=== PATIENT | male | born 1940 | race Caucasian/White ===

== ENCOUNTER → 2018-01-28 08:21 | Outpatient (CLI) | payer MEDICARE ==
--- NOTE | ~2018-01-28 | EC ---
PATIENT:PARESH LEONARD DATE OF SERVICE: 01/28/18 SEX: M MEDICAL RECORD: [id number] DATE OF : 40 LOCATION:[facility] AGE OF PATIENT: 77 ADMISSION DATE: 01/28/18 REFERRING PHYSICIAN: INTERPRETING PHYSICIAN: ORAL MONCADA MD ECHOCARDIOGRAM REPORT ECHO CHARGES 4 ECHO COMPLETE Date: 01/28/18 CLINICAL DIAGNOSIS: EDEMA/HTN/SOB ECHOCARDIOGRAPHIC MEASUREMENTS (adult normal given) AC root (d.<3.7cm) 3.4 cm LV Septum d (<1.2 cm> 1.3 cm Valve Excursion 2.1 cm LV Septum (systole) 1.6 cm Left Atria (s.<4.0cm> 3.8 cm LVPW d(<1.2cm) 1.4 cm RV (d.<2.3cm) 2.8 cm LVPW (sytole) 1.7 cm LV diastole(<5.6CM) 3.9 cm MV E-F(>70mm/sec) cm LV systole 1.6 cm LVOT Diameter 2.0 cm MV exc.(>10mm) cm Est.ejection fraction (50-75%) % DOPPLER: LVIT cm/sec A 57.0 cm/sec E 80.0 cm/sec LA cm/sec RVSP 41.3 mmHg LVOT 128 cm/sec AOP1/2T m/s Asc. Ao 181 cm/sec RVOT 61.0 cm/sec RA cm/sec PA 92.0 cm/sec AV Gradient Peak 13.1 mmHg AV Mean 6.7 mmHg AV Area 2.4 cm MV Gradient Peak 5.8 mmHg MV Mean 1.8 mmHg MV Area cm COMMENTS: Operations Research Manager: 1 TASIA CALHOUNOE Roof Truss Builder: 1 Dr. Moncada TAPE# PACS Pericardial Effusion N DATE OF SERVICE: FINDINGS: 1. Left ventricular chamber size is within normal limits. Left ventricular systolic function is normal. Overall ejection fraction estimated at 55%. 2. Left atrium is within normal limits at 3.8 cm. Right atrium and right ventricle chamber sizes are moderately dilated. 3. Valvular structures have normal structure and motion. 4. Doppler interrogation reveals only trace mitral regurgitation, mild tricuspid regurgitation, no other valvular insufficiency or stenosis. Pulmonary ECHOCARDIOGRAM REPORT [id number] PARESH LEONARD systolic pressure is estimated 41 mmHg. 5. No evidence of pericardial effusion or left ventricular thrombus. TRANSINT:[id number] Voice Confirmation ID: [id number] DOCUMENT ID: [id number] ORAL MONCADA MD at 0924 CC: [id number] DICTATION DATE: 01/28/18 1138 PRODUCTION CREW SUPERVISOR: 01/28/18 1157 DEP CLI 01/28/18 [id number] [place] [address]
[~2018-01-28 08:21] MED LIST: ADVAIR DISKU AER 250; ALBUTEROL SULF8.5 GM; FENOFIBRATE160 MG PO; KEFLEX500 MG PO; LISINOP/HCTZ TAB 20-; MEGACE ES625 MG/5 M PO; MUPIROCIN22 GM; TENORMIN25 MG PO; TENORMIN50 MG; ZOLOFT25 MG
[2018-02-20 12:36] VITALS: BMI 25.6
== END | disposition home or self-care (01) ==
LOC: D.ECHO 08:21
DX: R60.9 Edema, unspecified (principal); I10 Essential (primary) hypertension; R06.02 Shortness of breath

== ENCOUNTER 2018-01-28 09:00 | Inpatient (IN) | payer MEDICARE ==
[~2018-01-28] VITALS: Ht 157.5 cm; Wt 63.5 kg
[2018-02-19] MEDS ORDERED: LISINOP/HCTZ TAB 20- (09:55)
[2018-02-19] MEDS ORDERED: MUPIROCIN22 GM (09:56)
[2018-02-19] MEDS ORDERED: KEFLEX500 MG PO (09:56)
[2018-02-19] MEDS ORDERED: ZOLOFT25 MG (09:58)
[2018-02-19] MEDS ORDERED: TENORMIN25 MG PO (09:59)
[2018-02-19] MEDS ORDERED: ALBUTEROL SULF8.5 GM (10:00)
[2018-02-19] MEDS ORDERED: TENORMIN50 MG (10:00)
[2018-02-19] MEDS ORDERED: FENOFIBRATE160 MG PO (10:01)
[2018-02-19] MEDS ORDERED: ADVAIR DISKU AER 250 (10:01)
[2018-02-19] MEDS ORDERED: MEGACE ES625 MG/5 M PO (10:03)
[2018-02-19 10:20] LABS: BASOPHILS 0.4 % (0-2); EOSINOPHILS 0.9 % (0-7); HEMATOCRIT 29.1 % (42.0-54.0); HEMOGLOBIN 10.2 g/dL (13.5-17.5); IMMATURE GRANULOCYTES 0.5 % (0-5); LYMPHOCYTES 8.5 % (15-50); MCH 31.8 pg (26.0-34.0); MCHC 35.1 g/dL (31.0-37.0); MCV 90.7 fL (80.0-100.0); MEAN PLATELET VOLUME 9.7 fL (7.4-10.4); MONOCYTES 5.4 % (2-11); NEUTROPHILS 84.3 % (40-80); PLATELET COUNT 502 10x3/uL (130-400); RBC 3.21 10x6/uL (4.20-6.10); RDW 15.8 % (11.5-14.5); WBC 13.9 10x3/uL (4.8-10.8)
[2018-02-19 10:38] LABS: ALBUMIN 3.7 g/dL (3.4-5.0); ANION GAP 19.1 mmol/L (8-16); BILIRUBIN - TOTAL 0.36 mg/dL (0.2-1.3); CALCIUM 9.6 mg/dL (8.5-10.1); CARBON DIOXIDE 15.7 mmol/L (21.0-32.0); CREATININE - SERUM 2.2 mg/dL (0.6-1.3); POTASSIUM - SERUM 3.8 mmol/L (3.5-5.1); PROTEIN - SERUM 7.4 g/dL (6.4-8.2)
[2018-02-19 12:27] VITALS: BP 105/59; BMI 25.6
[2018-02-19 15:46] LABS: APPEARANCE CLEAR (CLEAR); BILIRUBIN NEGATIVE (NEGATIVE); COLOR YELLOW (YELLOW); GLUCOSE NEGATIVE (NEGATIVE); KETONE NEGATIVE (NEGATIVE); NITRITE NEGATIVE (NEGATIVE); PROTEIN NEGATIVE (NEGATIVE); UROBILINOGEN NORMAL (NORMAL)
[2018-02-19 17:37] VITALS: BP 99/57
[2018-02-19 21:05] VITALS: BP 99/57
[2018-02-20] VITALS (8 sets, daily range): BP systolic 96–129; BP diastolic 53–68; Ht 157.5 cm; Wt 63.5 kg
[2018-02-20 04:40] LABS: BASOPHILS 0.5 % (0-2); EOSINOPHILS 2.6 % (0-7); IMMATURE GRANULOCYTES 0.3 % (0-5); LYMPHOCYTES 16.1 % (15-50); MCH 31.1 pg (26.0-34.0); MCHC 34.5 g/dL (31.0-37.0); MCV 90.3 fL (80.0-100.0); MEAN PLATELET VOLUME 9.8 fL (7.4-10.4); MONOCYTES 12.3 % (2-11); NEUTROPHILS 68.2 % (40-80); RBC 2.57 10x6/uL (4.20-6.10); RDW 15.8 % (11.5-14.5)
[2018-02-20 04:52] LABS: HEMATOCRIT 23.2 % (42.0-54.0); PLATELET COUNT 331 10x3/uL (130-400); WBC 6.3 10x3/uL (4.8-10.8)
[2018-02-20 04:59] LABS: CALCIUM 8.6 mg/dL (8.5-10.1); PHOSPHOROUS 2.6 mg/dL (2.5-4.9); URIC ACID 7.1 mg/dL (2.6-7.2)
[2018-02-20 05:03] LABS: ANION GAP 12.5 mmol/L (8-16); CARBON DIOXIDE 24.4 mmol/L (21.0-32.0); CREATININE - SERUM 1.6 mg/dL (0.6-1.3); POTASSIUM - SERUM 2.9 mmol/L (3.5-5.1)
[2018-02-21] VITALS (9 sets, daily range): BP systolic 107–162; BP diastolic 59–75
[2018-02-21 05:37] LABS: BASOPHILS 0.6 % (0-2); IMMATURE GRANULOCYTES 0.8 % (0-5); LYMPHOCYTES 19.4 % (15-50); MCH 30.2 pg (26.0-34.0); MCV 88.9 fL (80.0-100.0); MEAN PLATELET VOLUME 9.8 fL (7.4-10.4); MONOCYTES 12.5 % (2-11); NEUTROPHILS 64.7 % (40-80); PLATELET COUNT 268 10x3/uL (130-400); RDW 16.5 % (11.5-14.5); WBC 5.1 10x3/uL (4.8-10.8)
[2018-02-21 05:44] LABS: HEMATOCRIT 29.7 % (42.0-54.0); HEMOGLOBIN 10.1 g/dL (13.5-17.5); RBC 3.34 10x6/uL (4.20-6.10)
[2018-02-21 06:15] LABS: CALCIUM 8.1 mg/dL (8.5-10.1); CARBON DIOXIDE 28.3 mmol/L (21.0-32.0); CREATININE - SERUM 1.2 mg/dL (0.6-1.3); MAGNESIUM - SERUM 1.8 mg/dL (1.8-2.4); POTASSIUM - SERUM 3.3 mmol/L (3.5-5.1)
[2018-02-21 06:21] LABS: PHOSPHOROUS 1.2 mg/dL (2.5-4.9)
[2018-02-22] VITALS (10 sets, daily range): BP systolic 114–171; BP diastolic 74–85
[2018-02-22 04:53] LABS: BASOPHILS 1.1 % (0-2); EOSINOPHILS 2.8 % (0-7); HEMATOCRIT 32.2 % (42.0-54.0); HEMOGLOBIN 10.9 g/dL (13.5-17.5); IMMATURE GRANULOCYTES 0.6 % (0-5); LYMPHOCYTES 20.9 % (15-50); MCH 30.3 pg (26.0-34.0); MCHC 33.9 g/dL (31.0-37.0); MCV 89.4 fL (80.0-100.0); MONOCYTES 10.8 % (2-11); NEUTROPHILS 63.8 % (40-80); PLATELET COUNT 305 10x3/uL (130-400)
[2018-02-22 04:55] LABS: WBC 6.5 10x3/uL (4.8-10.8)
[2018-02-22 05:05] LABS: INR 1.06 (0.85-1.17); PROTIME 13.4 SECONDS (11.6-15.0)
[2018-02-22 05:08] LABS: ANION GAP 12.2 mmol/L (8-16); CARBON DIOXIDE 26.5 mmol/L (21.0-32.0); CREATININE - SERUM 1.1 mg/dL (0.6-1.3); MAGNESIUM - SERUM 1.9 mg/dL (1.8-2.4); POTASSIUM - SERUM 3.7 mmol/L (3.5-5.1)
[2018-02-22 05:25] LABS: PHOSPHOROUS 1.5 mg/dL (2.5-4.9)
[2018-02-22 21:06] LABS: BETA-2 MICROGLOBULIN 4.6 mg/L (0.6-2.4)
[2018-02-23 19:09] LABS: SPE - A/G RATIO 1.3 (0.7-1.7); SPE - ALBUMIN 2.9 g/dL (2.9-4.4); SPE - ALPHA-1 GLOBULIN 0.2 g/dL (0.0-0.4); SPE - ALPHA-2 GLOBULIN 0.8 g/dL (0.4-1.0); SPE - BETA GLOBULIN 0.8 g/dL (0.7-1.3); SPE - GAMMA GLOBULIN 0.5 g/dL (0.4-1.8); SPE - M-SPIKE Not Observed g/dL (Not Observed); SPE - TOTAL PROTEIN 5.2 g/dL (6.0-8.5)
[2018-02-24 08:18] LABS: IMMUNOFIXATION Note: (()); IMMUNOGLOBULIN A 227 mg/dL (61-437); IMMUNOGLOBULIN G 496 mg/dL (700-1600); IMMUNOGLOBULIN M 31 mg/dL (15-143)
== END 2018-02-22 17:49 | disposition home or self-care (01) | DRG 682 ==
LOC: EDSTATUS 09:00 → D.MS 02-19 09:00
PROVIDERS: Internal Medicine Gastroenterology; Internal Medicine Nephrology; Legal Medicine
DX: N17.9 Acute kidney failure, unspecified (principal); E43 Unspecified severe protein-calorie malnutrition; E87.2 Acidosis; I10 Essential (primary) hypertension; F17.200 Nicotine dependence, unspecified, uncomplicated; J44.9 Chronic obstructive pulmonary disease, unspecified; R63.4 Abnormal weight loss; Z68.25 Body mass index [BMI] 25.0-25.9, adult; R29.898 Other symptoms and signs involving the musculoskeletal system; R19.7 Diarrhea, unspecified; D64.9 Anemia, unspecified; K20.9 Esophagitis, unspecified; K44.9 Diaphragmatic hernia without obstruction or gangrene; K25.9 Gastric ulcer, unspecified as acute or chronic, without hemorrhage or perforation; K26.9 Duodenal ulcer, unspecified as acute or chronic, without hemorrhage or perforation; K64.8 Other hemorrhoids

== ENCOUNTER → 2018-02-04 08:25 | Outpatient (CLI) | payer MEDICARE ==
[2018-02-20 12:36] VITALS: BMI 25.6
== END | disposition home or self-care (01) ==
LOC: D.RT 08:00
DX: R60.0 Localized edema (principal); I10 Essential (primary) hypertension